=== PATIENT | male | born 1945 | race Caucasian/White ===

== ENCOUNTER 2021-09-04 12:52 | Emergency (ER) | payer OTHER ==
[~2021-09-04] VITALS: Wt 117.9 kg
[~2021-09-04 12:52] MED LIST: NKHM
[2021-09-04] MEDS ORDERED: SIMVASTATIN40 MG PO (13:38)
[2021-09-04 14:34] LABS: BASO % 0.2 % (0.0-1.0); HEMATOCRIT 44.5 % (42.0-52.0); LYMPH # 1.4 10*3/uL (1.3-4.4); LYMPH % 29.4 % (27.0-41.0); MEAN CELL VOLUME 89.4 fl (80.0-94.0); MEAN CORPUSCULAR HGB 29.9 pg (27.0-31.0); MEAN CORPUSCULAR HGB CONC 33.5 g/dl (33.0-37.0); MEAN PLATELET VOLUME 10.6 fl (9.6-12.3); MONO # 0.7 10*3/uL (0.1-1.0); MONO % 14.7 % (3.0-9.0); NEUT # 2.6 10*3/uL (2.3-7.9); NEUT % 55.1 % (47.0-73.0); PLATELET COUNT AUTOMATED 167 10*3/uL (130-400); RED BLOOD COUNT 4.98 10*6/uL (4.50-5.90); RED CELL DISTRI WIDTH 12.5 % (0-14.5); WHITE BLOOD COUNT 4.7 10*3/uL (4.8-10.8)
[2021-09-04 14:47] LABS: ACT PARTIAL THROMBO TIME 31.3 SECONDS (20.0-32.1)
[2021-09-04 14:49] LABS: ALBUMIN 3.5 gm/dl (3.1-4.5); CREATININE 1.59 mg/dL (0.70-1.30); POTASSIUM 4.4 mmol/L (3.5-5.1); TOTAL PROTEIN 7.3 gm/dL (6.4-8.2)
== END 2021-09-04 17:41 | disposition home or self-care (01) ==
LOC: ED 12:52
PROVIDERS: Emergency Medicine
DX: R05.9 Cough, unspecified (principal); Z20.822 Contact with and (suspected) exposure to COVID-19; J02.9 Acute pharyngitis, unspecified